=== PATIENT | male | born 1965 | race Caucasian/White ===

== ENCOUNTER 2016-11-09 22:13 | Emergency (ER) | payer MEDICAID ==
[~2016-11-09] VITALS: Ht 157.5 cm; Wt 74.4 kg
[2016-11-09 23:26] VITALS: BP 156/90
--- NOTE | 2016-11-10 00:53 | NUR ---
Patient ambulated to bed 05.
--- NOTE | 2016-11-10 01:05 | NUR ---
51Y/M PATIENT PRESENT TO ED WITH C/O MIGRAINE HEADACHE SINCE 930PM.PT.EXPERIENCED LAST ONE WAS 4 MONTHS AGO. MEDICAL HX: SEIZURE 2 OR 3 YEARS AGO. PT IS ON NO MEDS CURRENTLY. DENIES N/V/D; SKIN IS PINK/WARM/DRY; AAOX4 WITH EVEN AND STEADY GAIT; LUNGS CLEAR BL; HR EVEN AND REGULAR; PT DENIES ANY FEVER, CP, SOB, OR COUGH AT THIS TIME; PATIENT STATES PAIN OF 5/10 AT THIS TIME; VSS; PATIENT POSITIONED FOR COMFORT; HOB ELEVATED; BEDRAILS UP X2; BED DOWN. ER MD MADE AWARE OF PT STATUS.
--- NOTE | 2016-11-10 01:05 | NUR ---
Patient being evaluated by DR. SALINAS at bedside.
[2016-11-10] MEDS ORDERED: METOCLOPRAMIDE 10 MG/2 ML INJ VIAL IVP ONE (01:10)
[2016-11-10] MEDS ORDERED: KETOROLAC 30 MG/ML VIAL IVP ONE (01:10)
[2016-11-10] MEDS ORDERED: diphenhydrAMINE 50 MG/ML VIAL IVP ONE (01:10)
[2016-11-10] MEDS ORDERED: NACL 0.9% 1,000 ML IV ONE (01:10)
--- NOTE | 2016-11-10 02:40 | NUR ---
Patient discharged with v/s stable. Written and verbal after care instructions given and explained. Patient alert, oriented and verbalized understanding of instructions. Ambulatory with steady gait. All questions addressed prior to discharge. ID band removed. Patient advised to follow up with PMD. Rx of REGLAN 10 MG, FIORICET 50-325-40 MG given. Patient educated on indication of medication including possible reaction and side effects. Opportunity to ask questions provided and answered.
[2016-11-10 02:41] VITALS: BP 137/80
== END 2016-11-10 02:40 | disposition home or self-care (01) ==
LOC: MED 22:13
DX: G43.909 Migraine, unspecified, not intractable, without status migrainosus (principal); I10 Essential (primary) hypertension
CPT/HCPCS: 70450; 96361; 96374; 96375; 99284; J1200; J1885; J2765; J7030